=== PATIENT | female | born 1945 | race Caucasian/White ===

== ENCOUNTER 2020-02-11 09:45 | Outpatient (CLI) | payer MEDICARE, SELFPAY ==
--- NOTE | 2020-02-11 10:15 | USCV_ITS ---
Mireya Bernstein Age: 74 Gender: F : 1945 Exam Date: 02/11/2020 10:07 Ordering Phys: Nikole Owen MD ([email or web address]) Technologist: Iliana Strickland Exam Location: [facility] – [place] Indication: SOB BP: 127 / 60 HR: 119 Rhythm: Sinus Technical Quality: Adequate MEASUREMENTS (Male / Female) Normal Values 2D ECHO LV Diastolic Diameter PLAX 3.6 cm 4.2 - 5.9 / 3.9 - 5.3 cm LV Systolic Diameter PLAX 3.2 cm LV Chamber Size 2.5 cm IVS Diastolic Thickness 1.0 cm 0.6 - 1.0 / 0.6 - 0.9 cm IVS Systolic Thickness 1.1 cm LVPW Diastolic Thickness 1.3 cm 0.6 - 1.0 / 0.6 - 0.9 cm LVPW Systolic Thickness 1.2 cm RV Chamber Size 2.9 cm LVOT Diameter 2.0 cm LV Ejection Fraction 2D Teich 24.4 % LV Ejection Fraction MOD 2C 70.1 % LV Ejection Fraction 2C AL 70.7 % LA Diameter 3.1 cm LA Width 2.6 cm LA Height 3.7 cm RA Width 2.0 cm RA Height 3.6 cm Aorta at Sinotubular Diameter 2.2 cm M-MODE LV Diastolic Diameter MM 3.9 cm 4.2 - 5.9 / 3.9 - 5.3 cm LV Systolic Diameter MM 2.4 cm LV Ejection Fraction MM Teich 69.1 % IVS Diastolic Thickness MM 0.6 cm 0.6 - 1.0 / 0.6 - 0.9 cm IVS Systolic Thickness MM 0.9 cm LVPW Diastolic Thickness MM 0.7 cm 0.6 - 1.0 / 0.6 - 0.9 cm LVPW Systolic Thickness MM 0.9 cm Aortic Annulus Diameter 2.5 cm LA Ao Ratio MM 1.4 MV E Point Septal Separation 0.3 cm DOPPLER AV Peak Velocity 137.0 cm/s LVOT Peak Velocity 122.0 cm/s AV Area Cont Eq vti 2.7 cm squared AV Area Cont Eq pk 2.8 cm squared MV Area PHT 4.2 cm squared Mitral E to A Ratio 1.5 MV E' Velocity 52.5 cm/s Mitral E to MV E' Ratio 6.9 Mitral E to LV E' Lateral Ratio 6.6 Mitral E to LV E' Septal Ratio 7.4 TR Peak Velocity 160.3 cm/s TR Peak Gradient 10.3 mmHg TV Peak E Velocity 61.0 cm/s Right Atrial Pressure 3.0 mmHg Pulmonary Artery Systolic Pressu 13.3 mmHg PV Peak Velocity 86.0 cm/s RV Acceleration Time 0.2 s RV Ejection Time 0.4 s RV AcT/ET 0.4 FINDINGS Left Ventricle Normal left ventricular cavity size. Normal left ventricular systolic function. No regional wall motion abnormalities. Left ventricular ejection fraction is estimated at 65 %. Grade II/IV diastolic dysfunction, moderately elevated filling pressures. Right Ventricle The right ventricle is normal in size and function. Right Atrium The right atrium is normal in size. Left Atrium The left atrium is normal in size. Mitral Valve Structurally normal mitral valve without significant stenosis or prolapse. There is no mitral regurgitation. Aortic Valve Aortic valve sclerosis without stenosis or regurgitation. Tricuspid Valve Structurally normal tricuspid valve without significant stenosis or regurgitation. Pulmonary artery systolic pressure is normal. Pulmonic Valve Structurally normal pulmonic valve without significant stenosis. There is no pulmonic regurgitation. Pericardium Normal pericardium without effusion. Aorta Normal ascending aorta dimension. CONCLUSIONS 1-Normal left ventricular cavity size. Normal left ventricular systolic function. No regional wall motion abnormalities. Left ventricular ejection fraction is estimated at 65 %. Grade II/IV diastolic dysfunction, moderately elevated filling pressures. 2-No significant valve abnormalities. 3-There is no pericardial effusion. 4-Pulmonary artery systolic pressure is within normal limits. 5-Right atrial pressure is around 5 mm of mercury. 6-There are no prior echocardiogram studies to compare. Nikole Owen MD (Electronically Signed) Final Date: 11 February 2020 19:12 S
== END 2020-02-11 09:46 | disposition home or self-care (01) ==
LOC: RAD 09:51
PROVIDERS: PCP Family Medicine; Visit Provider Internal Medicine Cardiovascular Disease
DX: R06.02 Shortness of breath (principal)
CPT/HCPCS: 93306

== ENCOUNTER 2021-08-05 14:21 | Outpatient (CLI) | payer BC, SELFPAY ==
--- NOTE | 2021-08-05 14:29 | MM_ITS ---
WS: [id number] BILATERAL 3D TOMOSYNTHESIS DIGITAL SCREENING MAMMOGRAPHY WITH CAD CLINICAL INFORMATION: SCREENING HISTORY: Screening mammogram. No current complaints. COMPARISON: TECHNIQUE: Bilateral CC and MLO views. FINDINGS: The breasts are composed of heterogeneous fibroglandular density tissue, which can limit the detectio n of small underlying mass lesions. A few incidental punctate calcifications. No suspicious mass, asy mmetry, calcifications, or architectural distortion. No evidence of malignancy. MM/[id number] IMPRESSION: BI-RADS: 2-Benign FOLLOW UP: 1 Year Follow-up Recommend return to annual screening mammography.
== END 2021-08-05 14:22 | disposition home or self-care (01) ==
LOC: RAD 14:23
PROVIDERS: PCP Family Medicine; Visit Provider Family Medicine
DX: Z12.31 Encounter for screening mammogram for malignant neoplasm of breast (principal)
CPT/HCPCS: 77063; 77067

== ENCOUNTER → 2021-08-24 14:00 | Outpatient (BNVA) | payer MEDICARE, SELFPAY | PROVIDERS: PCP Family Medicine; Visit Provider Internal Medicine Cardiovascular Disease | DX: R06.02 Shortness of breath (principal) | CPT/HCPCS: 99213 ==

== ENCOUNTER → 2022-03-07 13:53 | Outpatient (BNVA) | payer MEDICARE, SELFPAY | PROVIDERS: PCP Family Medicine; Visit Provider Internal Medicine Cardiovascular Disease | DX: R06.02 Shortness of breath (principal); E03.9 Hypothyroidism, unspecified; K21.9 Gastro-esophageal reflux disease without esophagitis | CPT/HCPCS: 99213 ==

== ENCOUNTER → 2024-11-07 13:20 | Outpatient (BNVA) | payer MEDICARE, SELFPAY | PROVIDERS: PCP Family Medicine; Visit Provider Internal Medicine Cardiovascular Disease | DX: R06.09 Other forms of dyspnea (principal); I10 Essential (primary) hypertension; I51.89 Other ill-defined heart diseases; F41.9 Anxiety disorder, unspecified; Z79.82 Long term (current) use of aspirin | CPT/HCPCS: 99204 ==